=== PATIENT | female | born 2005 | race Caucasian/White ===

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

== ENCOUNTER 2025-02-01 06:37 | Outpatient (CLI) | payer OTHER, SELFPAY ==
--- NOTE | ~2025-02-01 | CT_ITS ---
EXAMINATION: CT abdomen pelvis wo con DATE: 02/01/2025 06:56 INDICATION: Hematuria TECHNIQUE: Computed tomography (CT) of the abdomen and pelvis was performed without intravenous contrast. The dose-length product was 181.85 mGy-cm. COMPARISON: CT abdomen pelvis 07/29/2023, 10/16/2022 02/04/2022 FINDINGS: Stable 4 mm pulmonary nodule in the right lower lobe dating back to 2021. Liver, spleen, kidneys, adrenal glands, pancreas and gallbladder are unremarkable. Abdominal aorta is not aneurysmal. No bladder calculi. No enlarged lymph nodes in the abdomen or pelvis. Moderate to large amount of stool in the nondilated large bowel. Appendix is not identified. No hydronephrosis. No renal, ureteral or bladder calculi. IMPRESSION: 1. No CT evidence for an acute process in the abdomen or pelvis at this time. Reviewed, dictated and finalized at location Q.
--- OUTSIDE RECORDS SUMMARY | 2025-02-01 06:39 | XMS_ITS | Encounter Summary ---
Author Organization 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
--- OUTSIDE RECORDS SUMMARY | 2025-02-01 06:39 | XMS_ITS | Encounter Summary ---
Author Organization [facility] Healthcare Address [address] [place] [address] Care Team Providers Care Cord Tire Builder Name Role Phone Janel Banegas MD Primary Care Provider [phone] Osmany Montaño DO Primary Care Provider Encounter Details Date Type Department Care Team (Late st Contact Info) Description 02/24/2020 Telephone [facility] MRI Department [address] [place] [address] Astrid Corral, RT Social History Tobacco Use Types Packs/Day Years Used Date Smoking Tobacco: Never Comments No Sex and Gender Information Value Date Recorded Sex Assigned at Not on file 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
--- OUTSIDE RECORDS SUMMARY | 2025-02-01 06:39 | XMS_ITS | Clinical Summary ---
Author Organization [facility] Address [address] [place] [id number] Care Team Providers Care Planer Mill Grader Name Role Phone Osmany Montaño DO Primary Care Provider Allergies Active Allergy Reactions Criticality Noted Date Comments Adhesive Rash Medium 03/06/2022 Codeine Rash Medium 02/16/2020 Lactose Rash Medium 02/16/2020 Medications lithium ER (ESKALITH) 450 mg CR tablet Take 1 tablet (450 mg total) by mouth 2 (two) times a day 06/08/2021 Active lithium 600 mg capsule Take 1 capsule (600 mg total) by mouth 2 (two) times a day 05/24/2021 Active traZODone (DESYREL) 50 mg tablet Take 1 tablet (50 mg total) by mouth nightly 06/07/[address] (CYMBALTA) 60 mg capsule Take 1 capsule (60 mg total) by mouth daily Active DULoxetine DR (CYMBALTA) 30 mg capsule Take 1 capsule (30 mg total) by mouth daily Active ibuprofen (ADVIL,MOTRIN) 800 mg tablet TAKE 1 TABLET BY MOUTH EVERY 8 HOURS WITH FOOD NEEDED 04/09/2022 Active ketorolac (TORADOL) 10 mg tablet Take by mouth every 8 (eight) hours as needed 04/12/2022 Active ondansetron (ZOFRAN) 4 mg tablet Take 4 mg by mouth every 8 (eight) hours as needed 04/09/2022 Active polyethylene glycol (MIRALAX) 17 gram/dose powder MIX 17 GRAMS IN LIQUID OF CHOICE AND DRINK BY MOUTH ONCE DAILY FOR 6 DAYS. 02/05/2022 Active SUMAtriptan (IMITREX) 25 mg tablet Take 1 tab by mouth once at first sign of migraine. May repeat one time after 2 hours if needed. 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/2018 History of dysmenorrhea 02/24/2018 Lactose intolerance 02/24/2018 Panic attacks 02/24/2018 Melanocytic nevus of scalp 12/20/2015 Chest pain 08/29/2015 Tendon contracture 09/04/2013 Toe walker 09/04/2013 Palpitations 08/03/2011 Surgical History Surgery Date Site/Laterality Comments ANKLE SURGERY 06/10/2015 - 06/09/2016 Medical History Medical History Date Comments Anxiety Depression Constipation Allergic rhinitis Family History Medical History Relation Name Comments No Known Problems Father No Known Problems Mother Relation Name Status Comments Father Mother Social History Tobacco Use Types Packs/Day Years Used Date Smoking Tobacco: Never Smokeless Tobacco: Never Tobacco Cessation:Counseling Given: Not Answered Comments No Sex and Gender Information Value Date Recorded Sex Assigned at Not on file 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 Gender Identity Not on file Sexual Orientation Not on file Obstetrics History Last Filed Vital Signs Vital Sign Reading Time Taken Comments Blood Pressure 95/65 10/16/2022 10:06 AM CDT Pulse 102 10/16/2022 10:06 AM CDT Temperature 36.9 C (98.5 F) 10/16/2022 10:06 AM CDT Respiratory Rate 18 10/16/2022 10:06 AM CDT Oxygen Saturation 97% 10/16/2022 10:06 AM CDT Inhaled Oxygen Concentration - - Weight 69.4 kg (153 lb) 10/16/2022 10:06 AM CDT Height 165.1 cm (5' 5) 10/16/2022 10:06 AM CDT Body Mass Index 25.46 10/16/2022 10:06 AM CDT Plan of Treatment Health Maintenance Due Date Last Done Comments Depression Screening 2004 Hepatitis C Screening 2004 HPV Vaccines (1 - 3-dose series) 08/24/2019 Meningococcal B Vaccine (1 o f 2 - Standard) 2020 Regular Well Visit/Exam 18-64 2022 Influenza Vaccine (#1) 2025 , 02/09/2016, 04/21/2014, Additional history exists DTaP/Tdap/Td Vaccine (7 - Td or Tdap) 02/08/2026 02/09/2016, 02/21/2010, 03/21/2007, Additional history exists Hepatitis B Screening Completed 03/06/2005 , 2004, 2004 Pneumococcal vaccine <65 Completed 006, 03/06/2005, 2004, Additional history exists Varicella Vaccines Completed 02/21/2010, 09/27/2005 Meningococcal Vaccine Completed 03/30/2022, 016 Insurance [facility] Care Teams Planer Mill Grader Relationship Specialty Start Date End Date Osmany Montaño DO [address] [place] [address] PCP - General Pediatrics 04/17/22
--- OUTSIDE RECORDS SUMMARY | 2025-02-01 06:39 | XMS_ITS | Encounter Summary ---
Author Organization [facility] Address [address] [place] [address] Care Team Providers Care Job Press Feeder Name Role Phone Monica Loyd MD Primary Care Provider [phone] Cheri MartínezW Unavailable Unavailable Osmany Montaño DO Primary Care Provider Reason for Visit * Reason Onset Date Comments Med Question 08/13/2019 Encounter Details Date Type Department Care Team (Late st Contact Info) Description 08/13/2019 Telephone [facility] [address], [address] [place] [address] Monica Loyd MD [address] [phone] Med Question Social History Tobacco Use Types Packs/Day Years Used Date Smoking Tobacco: Passive Smo ke Exposure - Never Smoker Smokeless Tobacco: Never Alcohol Use Standard Drinks/Week Comments No 0 (1 standard drink = 0.6 oz pur e alcohol) Comments No Sex and Gender Information Value Date Recorded Sex Assigned at Not on file Legal Sex Female 3:12 PM CDT Gender Identity Not on file Sexual Orientation Not on file documented as of this encounter Functional Status * Is person deaf or have serious hearing difficulty? Answer Date of Assessment Author No 09/24/2016 2:30 PM CDT Eliza Seo RN * Is person blind or have serious difficulty seeing? Answer Date of Assessment Author No 09/24/2016 2:30 PM CDT Gabbi, Eliza Y, RN * Does person have serious difficulty walking/climbing stairs? Answer Date of Assessment Author No 09/24/2016 2:30 PM CDT Eliza Seo RN * Does person have difficulty dressing/bathing? Answer Date of Assessment Author No 09/24/2016 2:30 PM CDT Eliza Seo RN * Does person have difficulty doing errands alone? Answer Date of Assessment Author Yes 09/24/2016 2:30 PM CDT Eliza Seo RN documented as of this encounter Mental Status * Does person have difficulty concentrating/remembering/making decisions? Answer Entry Date Author Yes 09/24/2016 2:30 PM CDT Eliza Seo RN documented in this encounter Miscellaneous Notes * Telephone Encounter - Osmany Montaño DO - 08/13/2019 5:10 PM MICROBIOLOGY LABORATORY MANAGER Done. OBIOLOGY LABORATORY MANAGER * Telephone Encounter - Fany Quintanilla - 08/13/2019 2:45 PM CST Who is calling? Mother If other than self is caller listed on the HIPAA? yes What is the reason for call? Mom requesting refill on prescription citalopram hydrobromide 10 mg (pending) they are leaving out of town today at 5pm. Expected Response from the Clinic? Please call when approved and sent to pharmacy on file. OBIOLOGY LABORATORY MANAGER documented in this encounter Plan of Treatment Not on file documented as of this encounter Goals Goal Patient Goal Type Associated Problems Recent Progress Patient-Stated? Author Use safety retraint in car Lifestyle On track( 020 1:46 PM MICROBIOLOGY LABORATORY MANAGER) No Michelle Cool RN documented as of this encounter Visit Diagnoses Not on filedocumented in this encounter Additional Health Concerns Infection Onset Date Last Indicated Resolved Time COVID-19 Under Investigation 12/16/2020 12/16/2020 12/16/2020 4:25 PM CDT documented as of this encounter Care Teams Job Press Feeder Relationship Specialty Start Date End Date Monica Loyd MD PCP - General Pediatrics 02/20/18 02/08/20 Osmany Montaño DO PCP - General Pediatrics 02/09/20 Cheri Martínez LCSW [employer] 12/15/18 documented as of this encounter
--- OUTSIDE RECORDS SUMMARY | 2025-02-01 06:39 | XMS_ITS | Clinical Summary ---
Author Organization [facility] [employer] Address [address] [place] [address] Care Team Providers Care Exchange Clerk Name Role Phone Cheri Martínez RECEPTION CENTRE MANAGER Unavailable Unavailable Osmany Montaño DO Primary Care Provider Source Comments [facility],non-owned Affiliates and Associated Physician Practices is amultiple site organization consisting of ambulatory clinics and hospital sitesin [place], [place], [place] and [place]. This disclosure is being madepursuant to the Care Everywhere program and may not contain all information available regarding this patient. Last updated 18.[facility] [employer] Allergies Active Allergy Reactions Criticality Noted Date Comments Codeine 06/28/2016 Coughing, throat swelling Skin Adhesives Rash Medium 03/06/2022 Medications * This document contains information received from the source organization and may not represent a complete record from that organization. * Be aware that medications may not be up to date on this document. Alwaysverify current medications with the patient. acetaminophen (Tylenol) 500 MG tablet Take 2 (two) tablets by mouth 2 times daily Maximum allowable Acetaminophen amount = 4 Grams (4000 mg) / 24 hours. 3 Active polyethylene glycol 3350 (Miralax) 17 g packet Take 17 (seventeen) g by mouth once daily as needed for Constipation 7 packet 3 Active lithium carbonate (Eskalith) 150 MG capsule Take 1 (one) capsule by mouth at bedtime Take one capsule by mouth at bed time for the first 4 days and then take twice daily until you are seen by your psychiatrist. 14 capsule 3 Active Active Problems Problem Noted Date Diagnosed Date Serotonin syndrome 07/22/2022 Assessment & Plan (07/25/2022 10:30 AM COMMUNITY DEVELOPMENT COORDINATOR): Assessment: 16 year old female with bipolar disorder and panic attacks hospitalized due to serotonin syndrome (akathisia, ocular clonus, tremor, spontaneous clonus, hypertonia, hyper-reflexia). Serotonin syndrome most likely caused by taking dextromethorphan (Dayquil) in addition to pt's three scheduled serotonergic medications (duloxetine, trazadone, lithium). Although pt additionally takes sumatriptan as needed, she has not taken it recently. She also has not had recent changes in medication dosing. [place] toxicity also unlikely with nl levels. While anxiety could be contributing would not explain all of pt's symptoms. Neuroleptic malignant syndrome unlikely with no antipsychotic medications and presence of hyperreflexia (hyporeflexia more typical of NMS). Thyroid storm unlikely with no other suggestive symptoms and nl T4. Plan: - Discontinue cymbalta, lithium, trazodone, triptan - Avoid any further serotonergic medications (Eg. Zofran) - Serial exams. Monitor for any additional symptoms including hyperthermia, hypertension, and tachycardia - Cyproheptadine 2 mg PRN - Valium 5 mg PO Q4H PRN - Vital signs Q8H - Regular diet - Fall precautions - Psychiatry consult regarding medication recommendations and safety of restarting regimen of duloxetine, lithium, and trazadone. This regimen has worked well for the patient and this episode seems provoked by detromethorphan use. Recommendations: - [place] 150 mg QHS for 4 days and then BID until her appointment with her outpatient psychologist on 08/02/22. - Continue to hold duloxetine and trazodone - Family educated regarding serotonergic medications. Pharmacy has provided family with list of OTC medications that might cause serotonin syndrome Assessment & Plan (07/24/2022 10:20 AM COMMUNITY DEVELOPMENT COORDINATOR): Assessment: 16 year old female with bipolar disorder and panic attacks hospitalized due to serotonin syndrome (akathisia, ocular clonus, tremor, spontaneous clonus, hypertonia, hyper-reflexia). Serotonin syndrome most likely caused by taking dextromethorphan (Dayquil) in addition to pt's three scheduled serotonergic medications (duloxetine, trazadone, lithium). Although pt additionally takes sumatriptan as needed, she has not taken it recently. She also has not had recent changes in medication dosing. [place] toxicity also unlikely with nl levels. While anxiety could be contributing would not explain all of pt's symptoms. Neuroleptic malignant syndrome unlikely with no antipsychotic medications and presence of hyperreflexia (hyporeflexia more typical of NMS). Thyroid storm unlikely with no other suggestive symptoms and nl T4. Plan: - Discontinue cymbalta, lithium, trazodone, triptan - Avoid any further serotonergic medications (Eg. Zofran) - Serial exams. Monitor for any additional symptoms including hyperthermia, hypertension, and tachycardia - Loading dose of cyproheptadine at 12 mg and then 2 mg PRN - Valium 5 mg PO Q4H PRN - Vital signs Q8H - Regular diet - Fall precautions - Psychiatry consult regarding medication recommendations and safety of restarting regimen of duloxetine, lithium, and trazadone. This regimen has worked well for the patient and this episode seems provoked by detromethorphan use. Plan to see patient today. - Ongoing family education regarding serotonergic medications. Pharmacy has provided family with list of OTC medications that might cause serotonin syndrome Assessment & Plan (07/23/2022 2:09 PM COMMUNITY DEVELOPMENT COORDINATOR): Assessment: 16 year old female with bipolar disorder and panic attacks hospitalized due to serotonin syndrome (akathisia, ocular clonus, tremor, spontaneous clonus, hypertonia, hyper-reflexia). Serotonin syndrome most likely caused by taking dextromethorphan (Dayquil) in addition to pt's three scheduled serotonergic medications (duloxetine, trazadone, lithium). Although pt additionally takes sumatriptan as needed, she has not taken it recently. She also has not had recent changes in medication dosing. [place] toxicity also unlikely with nl levels. While anxiety could be contributing would not explain all of pt's symptoms. Neuroleptic malignant syndrome unlikely with no antipsychotic medications and presence of hyperreflexia (hyporeflexia more typical of NMS). Thyroid storm unlikely with no other suggestive symptoms and nl T4. Plan: - Discontinue cymbalta, lithium, trazodone, triptan - Avoid any further serotonergic medications (Eg. Zofran) - Serial exams. Monitor for any additional symptoms including hyperthermia, hypertension, and tachycardia - Loading dose of cyproheptadine at 12 mg and then 2 mg PRN - Valium 5 mg PO Q8H - Vital signs Q8H - Regular diet - CR Monitor - IVF at 100 ml/hr - Fall precautions - Psychiatry consult regarding medication recommendations and safety of restarting regimen of duloxetine, lithium, and trazadone. This regimen has worked well for the patient and this episode seems provoked by detromethorphan use. Plan to see patient 07/24. - Ongoing family education regarding serotonergic medications. Pharmacy has provided family with list of OTC medications that might cause serotonin syndrome Assessment & Plan (07/22/2022 12:08 PM COMMUNITY DEVELOPMENT COORDINATOR): Assessment: 16 year old female with PMHx of ADHD and panic attacks admitted for evaluation and management of myoclonus and tremor secondary to serotonin syndrome. Differential includes serotonin syndrome, neuroleptic malignant syndrome, thyroid storm, other acute dystonic syndrome. TSH mildly elevated and T4 is WNL. Patient is currently on 4 serotoninergic medications, and no antipsychotics. No infectious etiology suspected. Most likely secondary to serotonin syndrome. 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 Panic attacks 02/24/2018 Lactose intolerance 02/24/2018 History of dysmenorrhea, heavy periods -OCP 02/08 Resolved Problems Problem Noted Date Diagnosed Date Resolved Date Weight loss due to medication 03/25/2018 06/30/2021 Status post hardware removal 10/11/2016 03/25/2018 Closed left ankle fracture 01/10/2016 0 02/24/2018 Overview (01/19/2016): Left medial malleolus and distal fibula Immunizations Immunization Administration Dates Next Due DTAP HIB IPV 03/06/2005 DTaP VACCINE IM (6wk-6yrs) 02/21/2010,,03/06/2005,12/29,2004 HEP A PEDS 2 DOSE 02/21/2010,01/07/2009 HEP B VACCINE, PED/ADOL 03/06/2005,2004, HIB-PRP-OMP 3 DOSE 03/21/2007,2004, 005 INFLUENZA VACCINE 02/09/2016,04/21/2014,04/28/20 12 INFLUENZA VACCINE, QUADR. (F LUZONE; FLULAVAL; FLUARIX; AFLURIA QUADRIVALENT; 6MO+), 0.5 ML (IIV4) 08/11/2020 MENINGOCOCCAL ACWY MENVEO 02/09/2016 MMR 02/21/2010,09/27/2005 PNEUMOCOCCAL PCV7 CONJ, PEDS 09/27/2005, 03/06/2005,2004,10/19 POLIO IPV 02/21/2010, 5,2004,10/19 TDAP (7yrs+) 02/09/2016 VARICELLA 02/21/2010,09/27/2005 Family History Medical History Relation Name Comments Anesthesia Reaction Maternal Aunt PONV CAD (Coronary Artery Disease) Maternal Grandfather Diabetes - Type 2 Maternal Grandmother Anesthesia Reaction Mother PONV Relation Name Status Comments Maternal Aunt Maternal Grandfather Maternal Grandmother Mother Social History Tobacco Use Types Packs/Day Years Used Date Smoking Tobacco: Never Passive Smoke Exposure: Never Smokeless Tobacco: Never Tobacco Cessation:Counseling Given: Not Answered Alcohol Use Standard Drinks/Week Comments No 0 (1 standard drink = 0.6 oz pur e alcohol) AUDIT-C Answer Date Recorded Q1: How often do you have a drink containing alcohol? Never 03/06/2022 Q2: How many drinks containi ng alcohol do you have on a typical day when you are drinking? Patient does not drink Q3: How often do you have si x or more drinks on one occasion? Never 03/06/2022 PHQ-2 Answer Date Recorded PHQ2 TOTAL SCORE 5 03/06/2022 Comments No Sex and Gender Information Value Date Recorded Sex Assigned at Not on file Legal Sex Female 3:12 PM CDT Gender Identity Not on file Sexual Orientation Not on file Last Filed Vital Signs Vital Sign Reading Time Taken Comments Blood Pressure 108/62 07/25/2022 11:15 AM COMMUNITY DEVELOPMENT COORDINATOR Pulse 76 07/25/2022 11:15 AM COMMUNITY DEVELOPMENT COORDINATOR Temperature 36.7 C (98 F) 07/25/2022 11:15 AM COMMUNITY DEVELOPMENT COORDINATOR Respiratory Rate 18 07/25/2022 11:15 AM COMMUNITY DEVELOPMENT COORDINATOR Oxygen Saturation 100% 07/25/2022 11:15 AM COMMUNITY DEVELOPMENT COORDINATOR Inhaled Oxygen Concentration 100% 01/10/2016 7 :55 PM CDT Weight 69.5 kg (153 lb 3.5 oz) 07/22/2022 9:25 A M COMMUNITY DEVELOPMENT COORDINATOR Height 164 cm (5' 4.57) 07/22/2022 9:25 AM COMMUNITY DEVELOPMENT COORDINATOR Body Mass Index 25.84 07/22/2022 9:25 AM COMMUNITY DEVELOPMENT COORDINATOR Plan of Treatment Health Maintenance Due Date Last Done Comments HIV SCREENING 08/24/2019 HPV VACCINE (1 - 3-dose series) 08/24/2019 CHLAMYDIA/GONORRHEA SCREENING 2020 MENINGOCOCCAL (Group B) VACCINE SHARED DECISION-MAKING (1 of 2 - Standard) 2020 HEPATITIS C SCREENING 08/19/2022 COVID-19 VACCINE ( season) 2024 INFLUENZA VACCINE (#1) 2025 , 02/09/2016, 04/21/2014, Additional history exists DTAP/TDAP/TD VACCINES (7 - Td or Tdap) 02/08/2026 02/09/2016, 02/21/2010, 03/21/2007, Additional history exists ZOSTER VACCINE (1 of 2) 2054 HEPATITIS B VACCINE Completed 03/06/2005, 2004, 2004 PNEUMOCOCCAL VACCINE Completed 09/27/2005, 03/06/2005, 2004, Additional history exists HIB VACCINE Completed 03/21/2007, 02/09, 2004, Additional history exists MENINGOCOCCAL GROUPS A/C/Y/W VACCINE Aged Out 02/09/2016 No longer eligible based on patient's age to complete this topic Goals Goal Patient Goal Type Associated Problems Recent Progress Patient-Stated? Author Use safety retraint in car Lifestyle On track( 020 1:46 PM COMMUNITY DEVELOPMENT COORDINATOR) Michelle Wilkerson RN Medical Devices Explanted Type Area Therapist Device Identifier Shelf Expiration Date Model / Serial / Lot K Wire. Periloc Explanted:Qty: 2 on 01/19/2016 by Clau Bernabe MD at [facility] [id number] / / Scrw Poonam Part Thrd 4 X 38mm Implanted:Qty: 2 on 01/19/2016 by Clau Bernabe MD at [facility] Explanted:Qty: 2 on 09/24/2016 by Alissa Lopez MD at [facility] [employer] [id number] / / Insurance [facility] Advance Directives * Full Code (Latest Code Status on File) Date Activated Date Inactivated Comments 07/22/2022 9:31 AM 07/25/2022 6:57 PM Care Teams Exchange Clerk Relationship Specialty Start Date End Date Osmany Montaño DO PCP - General Pediatrics 02/09/20 Cheri Martínez LCSW Service Girl 12/15/18
== END 2025-02-01 06:38 | disposition home or self-care (01) ==
PROVIDERS: PCP Physician Assistant Medical; Visit Provider Obstetrics & Gynecology
DX: R31.9 Hematuria, unspecified (principal)
CPT/HCPCS: 74176